=== PATIENT | male | born 1945 | race Caucasian/White ===

== ENCOUNTER 2021-10-13 19:01 | Emergency (ER) | payer OTHER ==
[2021-10-13 20:17] LABS: HEMOGLOBIN 13.7 gm/dl (14.0-17.5); RED BLOOD COUNT 4.11 M/UL (4.20-5.50); WHITE BLOOD COUNT 8.2 K/UL (4.5-11.0)
[2021-10-13 20:42] LABS: BUN/CREATININE RATIO 26 (0-10)
[2021-10-13] MEDS ORDERED: IBUPROFEN600 MG PO (23:41)
== END 2021-10-14 | disposition home or self-care (01) ==
LOC: ER1 19:01
PROVIDERS: Physician Assistant
DX: S01.111A Laceration without foreign body of right eyelid and periocular area, initial encounter (principal); F10.129 Alcohol abuse with intoxication, unspecified; Y90.8 Blood alcohol level of 240 mg/100 ml or more; F17.210 Nicotine dependence, cigarettes, uncomplicated; W01.10XA Fall on same level from slipping, tripping and stumbling with subsequent striking against unspecified object, initial encounter; Y92.009 Unspecified place in unspecified non-institutional (private) residence as the place of occurrence of the external cause
CPT/HCPCS: 12013; 70450; 70486; 71045; 72125; 80053; 80307; 81001; 82550; 82553; 84484; 85025; 87086; 99284; G0480